=== PATIENT | female | born 1995 | race Two or more races ===

== ENCOUNTER 2016-07-20 12:46 | Emergency (ER) | payer MEDICAID, OTHER ==
[~2016-07-20] VITALS: Ht 154.9 cm; Wt 104.8 kg
[2016-07-20 14:03] LABS: Urine Bilirubin Negative (Negative); Urine Blood Negative /uL (Negative); Urine Color Yellow (Yellow); Urine Glucose Normal (Normal); Urine Ketone Negative (Negative); Urine Mucus FEW (None Seen); Urine Nitrite Negative (Negative); Urine RBC 1 /hpf (0 - 4); Urine Squamous Epithelial Cell FEW /hpf (<5); Urine Urobilinogen Normal (Negative); Urine pH 5.5 (5.0-8.0)
[2016-07-20] MEDS ORDERED: LEVOFLOXACIN 250 MG TAB PO ONE (14:15)
[2016-07-20] MEDS ORDERED: PHENAZOPYRIDINE HCL 100 MG TAB PO ONE (14:15)
[2016-07-20 14:46] VITALS: BP 122/71
== END 2016-07-20 14:34 | disposition home or self-care (01) ==
LOC: ER 12:50
DX: N39.0 Urinary tract infection, site not specified (principal)
CPT/HCPCS: 81001; 81025